=== PATIENT | female | born 1960 | race Caucasian/White ===

== ENCOUNTER 2016-12-15 17:26 | Emergency (ER) | payer OTHER ==
[~2016-12-15] VITALS: Wt 60.8 kg
[~2016-12-15 17:26] MED LIST: ATIVAN1 MG PO; FENOFIBRATE40 MG PO; [UNRECOGNIZED DRUG - OTHER] PO
[2016-12-15] MEDS ORDERED: ANAPROX DS550 MG PO (17:40)
== END 2016-12-15 18:43 | disposition home or self-care (01) ==
LOC: ED 17:26
DX: S50.01XA Contusion of right elbow, initial encounter (principal); M54.5 Low back pain; M25.511 Pain in right shoulder; F17.200 Nicotine dependence, unspecified, uncomplicated; Z88.1 Allergy status to other antibiotic agents; Z79.899 Other long term (current) drug therapy; W01.0XXA Fall on same level from slipping, tripping and stumbling without subsequent striking against object, initial encounter; Y93.89 Activity, other specified; Y92.89 Other specified places as the place of occurrence of the external cause; Y99.8 Other external cause status

== ENCOUNTER 2017-03-15 17:59 | Inpatient (IN) | payer OTHER ==
[~2017-03-15] VITALS: Ht 165.1 cm; Wt 64.4 kg
--- NOTE | ~2017-03-15 | ST ---
[place], [place] EXERCISE STRESS TEST REPORT NAME: [facility]: [id number] UNIT #: [id number] ROOM: 521 DOCTOR: MELY DONALDSON MD BIRTHDATE: [birth year] DOS: REQUESTING PHYSICIAN: Dr. Borden. REASON FOR PROCEDURE: Chest pain or pressure. PROCEDURE: The patient was exercised on a treadmill using Ovi protocol. The patient exercised for 6 minutes, reaching 90% of her maximum predicted heart rate. Maximum workload was 8 METs. Test was terminated due to achieving target heart rate. No complaint of chest pain, chest pressure, heaviness or tightness. BLOOD PRESSURE RESPONSE: Resting blood pressure 100/60 with ending blood pressure 139/72. ELECTROCARDIOGRAM INTERPRETATION: Resting cardiogram showing normal sinus rhythm. At the peak of the stress test, there was no evidence of any significant ST or T-wave changes suggestive of myocardial ischemia. No arrhythmias were noted. SUMMARY: 1. Adequate stress test with good functional capacity. 2. Negative treadmill stress test for stress induced myocardial ischemia. 3. No arrhythmias were noted except for a single PVC into recovery, which was symptomatic. 4. Normal blood pressure at rest with normal blood pressure response to exercise. 5. Myoview results will be reported separately. MELY DONALDSON MD CM:STRESS:EXERCISE STRESS TEST REPORT [id number] MELY DONALDSON MD
--- NOTE | ~2017-03-15 | CON ---
[place], [place] REPORT OF CONSULTATION NAME[id number] UN[facility] #: [id number] ROOM: 521 DOCTOR: MELY DONALDSON MD BIRTHDATE: [birth year] DOS: REQUESTING PHYSICIAN: Dr. Borden. REASON FOR CONSULTATION: Chest pain. ASSESSMENT: 1. Current presentation with left-sided chest pain. 2. Low-grade temperature at 99.1. 3. Worsening chest pain with deep inspiration. 4. Significant early family history of heart disease. 5. Hypertriglyceridemia. 6. Active tobacco abuse. 7. Elevated TSH. PLAN: 1. Cyclic ____ enzymes. 2. Keep patient n.p.o. for a stress test. 3. Enteric-coated aspirin 81 mg. 4. Check fasting lipid panel. 5. Elevated TSH per primary team. 6. No further cardiac testing at this time. 7. Program for smoking cessation. HISTORY AND PHYSICAL: The patient is a pleasant 56-year-old female unknown to our practice, was referred by Dr. Borden for further evaluation of complaint of chest pain, apparently the patient was woken up yesterday with this complaint. The pain is left-sided, dull aching, did radiate to her left arm all the way to the back. It did reach 5-6/10. It fluctuated throughout the day and finally the patient presented to the emergency room. The patient noticed that the pain will get worse with deep inspiration. No jaw pain, no back pain. Never had such complaint before yesterday. The patient is exhibiting low-grade temperature. No cough, no fever, no chills, no night sweats. Maintain good appetite. No weight loss. Never had any symptomatic palpitation or any associated dizziness, lightheadedness or near syncope. No reported snoring. The patient sleeps with 1 pillow with no PND, orthopnea or pedal edema. PAST MEDICAL HISTORY: As detailed in my assessment. SOCIAL HISTORY: The patient continued to use her e-cigarettes for the past 3 years, currently denies any alcohol or illicit drug abuse. FAMILY HISTORY: The patient's father in his 80s of a stroke, her mother at age 60 of cancer, but had myocardial infarction in her 50s. She has 2 brothers, both of them , one of them had myocardial infarction also in his 50s. Two sisters still alive with no reported heart problems. CURRENT MEDICATIONS: Lovenox, Restoril, Zofran, magnesium, [place], Tylenol, Toradol. [place], [place] REPORT OF CONSULTATION NAME: YANET MCMILLAN UNIT #: [id number] ROOM: 521 DOCTOR: MELY DONALDSON MD BIRTHDATE: [birth year] ALLERGIES: The patient is allergic to ERYTHROMYCIN which caused rash. REVIEW OF SYSTEMS: The patient denies any current headache, diplopia, or blurry vision. No fever, no chills, no night sweats, no abdominal pain, no bright red blood per rectum or tarry stools. The patient admits to joint pain, but no muscular pain. No anxiety, no depression, no polyuria, no polydipsia, no skin rash. Review of all other systems has been negative. PHYSICAL EXAMINATION: GENERAL: The patient is alert and oriented x 3, quite pleasant, sitting flat in bed, does not appear in distress. VITAL SIGNS: Blood pressure 104/64, heart rate 64, respiratory rate of 14, temperature 99.1. HEENT: Extraocular muscle intact. Pupils equal, round, reactive to light. Conjunctivae: No pallor. Throat: No petechiae. NECK: Good upstroke. Unable to appreciate any bruit, no lymphadenopathy, no thyromegaly. HEART: S1, S2 with a faint S4 gallop. No rub, no retrosternal heave. CHEST AND BACK: No deformities. LUNGS: Clear to auscultation. Good air movement. No wheezing, no rales. ABDOMEN: Obese, soft, nontender, present bowel sounds, no masses, no bruits. LOWER EXTREMITIES: There is no edema with faint distal pulses. NEUROLOGIC: Grossly nonfocal. SKIN: No significant rash. Electrocardiogram show normal sinus rhythm with no acute ST-T changes. LABORATORY DATA: White count 5.6, hemoglobin 11.6. There is elevated neutrophils. BUN 16, creatinine 0.7, total cholesterol 146, LDL 57, HDL is 79. TSH 7.750, T4 0.91. Troponin less than 0.015 times 3. MELY DONALDSON MD CM:CONSTR:REPORT OF CONSULTATION 1006 03/17/17 0408 interface
[~2017-03-15 17:59] MED LIST changes: +ANAPROX DS550 MG PO
--- NOTE | 2017-03-15 18:08 | NUR ---
PT REFUSES IV INSERTION "UNTIL IT'S ABSOLUETLY NEEDED".
[2017-03-15 18:11] VITALS: BP 128/64
[2017-03-15 18:14] LABS: BASO % 0.4 % (0.0-1.0); EOS # 0.2 10*3/uL (0.0-0.4); HEMATOCRIT 37.1 % (37.0-47.0); HEMOGLOBIN 12.2 g/dl (12.0-16.0); LYMPH # 2.7 10*3/uL (1.3-4.4); LYMPH % 33.2 % (27.0-41.0); MEAN CELL VOLUME 97.1 fl (81.0-99.0); MEAN CORPUSCULAR HGB 31.9 pg (27.0-31.0); MEAN CORPUSCULAR HGB CONC 32.9 g/dl (33.0-37.0); MEAN PLATELET VOLUME 10.6 fl (9.6-12.3); MONO # 0.5 10*3/uL (0.1-1.0); NEUT # 4.8 10*3/uL (2.3-7.9); NEUT % 58.2 % (47.0-73.0); PLATELET COUNT AUTOMATED 257 10*3/uL (130-400); RED BLOOD COUNT 3.82 10*6/uL (4.10-5.10); RED CELL DISTRI WIDTH 12.9 % (0-14.5); WHITE BLOOD COUNT 8.2 10*3/uL (4.8-10.8)
[2017-03-15 18:22] LABS: ACT PARTIAL THROMBO TIME 26.5 SECONDS (20.8-31.5); INTERNATIONAL NORM RATIO 0.9 (2.0-3.5)
[2017-03-15 18:31] LABS: ALBUMIN 3.5 gm/dl (3.1-4.5); ALKALINE PHOSPHATASE 53 U/L (45-117); BUN 18 mg/dl (7-24); CHLORIDE 105 mmol/L (98-107); CREATININE 1.06 mg/dL (0.55-1.02); POTASSIUM 3.6 mmol/L (3.5-5.1); SGOT/AST 18 IU/L (3-35); SGPT/ALT 17 U/L (12-78); SODIUM 141 mmol/L (136-145)
[2017-03-15 18:33] LABS: TROPONIN I < 0.015 ng/ml (<0.045)
[2017-03-15 20:02] VITALS: BP 128/64
[2017-03-15 20:25] VITALS: BP 122/72
--- NOTE | 2017-03-15 20:25 | NUR ---
A 56, admitted to 5E, under the services of USHA Meza DO with a diagnosis of CHEST PAIN. Chief complaint is CHEST PAIN. Patient arrived via wheel chair from ER. Monitor applied. Initial assessment completed. Vital signs taken and recorded. USHA MEZA DO notified of admission to the unit. Orders received. See assessment for past medical history, medications and allergies. Patient and/or family oriented to unit. visitation policy reviewed. Clothing/patient valuable form completed. MARY PHOENIX
[2017-03-15] MEDS ORDERED: ASPIRIN ADULT L81 M1 PO (20:55)
[2017-03-15] MEDS ORDERED: ESTRACE1 M1 PO (20:55)
[2017-03-15] MEDS ORDERED: COLACE100 MG PO (20:56)
[2017-03-15] MEDS ORDERED: MIRALAX119 GM PO (20:57)
--- NOTE | 2017-03-15 20:59 | NUR ---
MED REC UP TO DATE, PER PATIENT
[2017-03-15 21:21] LABS: CKMB 1.5 ng/ml (0.5-3.6); CPK 59 U/L (26-192); TROPONIN I < 0.015 ng/ml (<0.045)
[2017-03-16] VITALS: BP 102/59; BP 130/63
[2017-03-16 00:27] LABS: CKMB 1.3 ng/ml (0.5-3.6); CPK 48 U/L (26-192)
[2017-03-16 00:28] LABS: TROPONIN I < 0.015 ng/ml (<0.045)
--- NOTE | 2017-03-16 02:00 | NUR ---
SLEEPING. RESP EASY AND NONLABORED ON ROOM AIR. NO DISTRESS NOTED. CM INTACT. IVF INFUSING PER ORDER. CALL LIGHT IN REACH. WILL CONTINUE TO MONITOR.
--- NOTE | 2017-03-16 05:15 | NUR ---
DR CALZADA MADE AWARE OF NEW CONSULT, LAB RESULTS, AND STRESS TEST ORDERED FOR THIS AM. NO NEW ORDERS RECEIVED
[2017-03-16 06:21] LABS: BASO % 0.5 % (0.0-1.0); EOS # 0.2 10*3/uL (0.0-0.4); EOS % 3.4 % (1.0-4.0); HEMATOCRIT 35.4 % (37.0-47.0); HEMOGLOBIN 11.6 g/dl (12.0-16.0); LYMPH # 2.4 10*3/uL (1.3-4.4); LYMPH % 43.5 % (27.0-41.0); MEAN CELL VOLUME 99.4 fl (81.0-99.0); MEAN CORPUSCULAR HGB 32.6 pg (27.0-31.0); MEAN CORPUSCULAR HGB CONC 32.8 g/dl (33.0-37.0); MEAN PLATELET VOLUME 10.5 fl (9.6-12.3); MONO # 0.4 10*3/uL (0.1-1.0); MONO % 7.5 % (3.0-9.0); NEUT # 2.5 10*3/uL (2.3-7.9); NEUT % 44.9 % (47.0-73.0); PLATELET COUNT AUTOMATED 237 10*3/uL (130-400); RED BLOOD COUNT 3.56 10*6/uL (4.10-5.10); WHITE BLOOD COUNT 5.6 10*3/uL (4.8-10.8)
[2017-03-16 06:35] LABS: CHLORIDE 113 mmol/L (98-107); POTASSIUM 3.9 mmol/L (3.5-5.1); SODIUM 143 mmol/L (136-145)
[2017-03-16 06:49] LABS: ACT PARTIAL THROMBO TIME 26.9 SECONDS (20.8-31.5); INTERNATIONAL NORM RATIO 0.9 (2.0-3.5)
[2017-03-16 06:51] LABS: ALBUMIN 3.1 gm/dl (3.1-4.5); ALKALINE PHOSPHATASE 45 U/L (45-117); BUN 16 mg/dl (7-24); CHOLESTEROL 146 mg/dL (<200); CREATININE 0.79 mg/dL (0.55-1.02); FREE T4 0.91 ng/dl (0.76-1.46); HDL CHOLESTEROL 79 mg/dl (40-60); LDL CHOLESTEROL 57 mg/dL (9-159); PHOSPHOROUS 3.1 mg/dL (2.5-4.9); SGOT/AST 18 IU/L (3-35); SGPT/ALT 14 U/L (12-78); TRIGLYCERIDES 52 mg/dl (<150); VLDL CHOLESTEROL 10 mg/dL (6-40)
[2017-03-16 08:00] VITALS: BP 104/64
--- NOTE | 2017-03-16 09:00 | NUR ---
Appliance Worker in to talk to patient. Patient states lives at home with . There are few steps in the home. Physician: desirae [facility]acy: [facility] Home health services: no Patient's level of ADLs: INDEPENDENT Patient has working utilities: all working DME: none Follow-up physician's appointment after d/c: will be made by hospitalist nurse director upon discharge Does patient want to access PORTAL?: no Discharge plan discussed with patient, patient lives at home with , is independent in adls and ambulation, drives, patient will be going back home and denies any home needs. ISABEL CHACON
[2017-03-16 12:00] VITALS: BP 112/65
--- NOTE | 2017-03-16 12:30 | NUR ---
INFORMED CONSENT SIGNED FOR CARDIOLYTE STRESS TEST WITH DR. DONALDSON. RESTING EKG NSR, HR 68, BP 100/60. COMPLETED 6:00 OF A STANDARD FÁTIMA PROTOCOL COMPLETING 3:00 OF STAGE II, 2.5 MPH/12% GRADE. TEST TERMINATED AT PHYSICIANS DISCRETION. PEAK HEART RATE OF 148 ACHIEVED WHICH IS 90% PREDICTED MAXIMUM AND A PEAK BP OF 130/72. HAS AN AVERAGE EXERCISE TOLERANCE. SINGLE PVC NOTED IN RECOVERY WITH NO ST CHANGES. LAST RECOVERY HEART RATE 85, BP 118/68. WAITING NUCLEAR SCANNING IN STABLE CONDITION.
[2017-03-16 16:00] VITALS: BP 108/54
--- NOTE | 2017-03-16 19:50 | NUR ---
DR DONALDSON CALLED TO INQUIRE ABOUT PT BEING ABLE TO BE DISCHARGED, HE STATED THAT HE HAD CALLED EARLIER AND HER STRESS TEST WAS NEGATIVE AND SHE COULD BE DC'ED.
--- NOTE | 2017-03-16 19:51 | NUR ---
DR CIFUENTES CALLED TO LET HER KNOW IT WAS OK WITH CARDIOLOGY FOR PT TO BE DC'ED.
--- NOTE | 2017-03-16 20:19 | NUR ---
SPOKE TO . PATIENT HAS NO RESTRICTIONS ON RETURNING BACK TO WORK. RETURN TO WORK SLIP GIVEN.
--- NOTE | 2017-03-16 20:29 | NUR ---
Patient discharged in stable condition, referral letter provided to patient with specific instructions and appointment for ongoing treatment. Patient verbalizes understanding of discharge plan. Patient ambulated off of floor in care of . IV heplock removed and tissue technologist collected.
== END 2017-03-16 20:29 | disposition home or self-care (01) | DRG 206 ==
LOC: ED 17:59 → EDHOLD 19:09 → 5E 19:21
PROVIDERS: Emergency Medicine; Hospitalist; ADMIT Internal Medicine
PROC: 4A02XM4 Measurement of Cardiac Total Activity, External Approach (ICD-10-PCS; principal; 2017-03-16)
DX: M94.0 Chondrocostal junction syndrome [Tietze] (principal); F41.9 Anxiety disorder, unspecified; K59.00 Constipation, unspecified; E78.1 Pure hyperglyceridemia; Z87.891 Personal history of nicotine dependence; Z83.6 Family history of other diseases of the respiratory system; Z80.9 Family history of malignant neoplasm, unspecified; Z88.1 Allergy status to other antibiotic agents; Z82.49 Family history of ischemic heart disease and other diseases of the circulatory system; Z82.3 Family history of stroke; Z90.710 Acquired absence of both cervix and uterus; Z90.89 Acquired absence of other organs

== ENCOUNTER → 2017-08-19 | Outpatient (CLI) | payer OTHER ==
[~2017-08-19] MED LIST changes: +ASPIRIN ADULT L81 M1 PO; +COLACE100 MG PO; +ESTRACE1 M1 PO; +MIRALAX119 GM PO
== END | disposition home or self-care (01) ==
LOC: MAMMO 08:31
DX: Z12.31 Encounter for screening mammogram for malignant neoplasm of breast (principal)

== ENCOUNTER → 2018-11-04 | Outpatient (CLI) | payer OTHER | END | disposition home or self-care (01) | LOC: MAMMO 10:30 | DX: Z12.31 Encounter for screening mammogram for malignant neoplasm of breast (principal) ==

== ENCOUNTER → 2020-01-23 | Outpatient (CLI) | payer OTHER | END | disposition home or self-care (01) | LOC: MAMMO 08:30 | PROVIDERS: ATTEND Advanced Practice Midwife | DX: Z12.31 Encounter for screening mammogram for malignant neoplasm of breast (principal) ==

== ENCOUNTER → 2022-12-11 | Outpatient (CLI) | payer BC | END | disposition home or self-care (01) | LOC: MAMMO 12-02 16:30 | PROVIDERS: ATTEND Nurse Practitioner | DX: Z12.31 Encounter for screening mammogram for malignant neoplasm of breast (principal); N63.20 Unspecified lump in the left breast, unspecified quadrant; N64.9 Disorder of breast, unspecified ==

== ENCOUNTER → 2022-12-25 | Outpatient (CLI) | payer BC | END | disposition home or self-care (01) | LOC: MAMMO 01:07 | PROVIDERS: ATTEND Nurse Practitioner | DX: R92.1 Mammographic calcification found on diagnostic imaging of breast (principal); N60.02 Solitary cyst of left breast ==

== ENCOUNTER → 2023-01-19 | Outpatient (CLI) | payer BC | END | disposition home or self-care (01) | LOC: MRI 09:58 | PROVIDERS: ATTEND Specialist | DX: H90.3 Sensorineural hearing loss, bilateral (principal) ==

== ENCOUNTER → 2023-02-11 | Day surgery (SDC) | payer BC ==
[~2023-02-11] VITALS: Ht 165.1 cm; Wt 70.8 kg
[~2023-02-11] MED LIST changes: +DIAZEPAM5 MG PO
[2023-02-11 08:30] VITALS: BP 132/74
[2023-02-11 09:36] VITALS: BP 114/62
[2023-02-11 09:51] VITALS: BP 112/67
[2023-02-11 10:06] VITALS: BP 112/65
== END | disposition home or self-care (01) ==
LOC: SDC 02-06 14:00
PROVIDERS: ATTEND Specialist
DX: H83.01 Labyrinthitis, right ear (principal); H81.91 Unspecified disorder of vestibular function, right ear; F41.9 Anxiety disorder, unspecified; F32.A Depression, unspecified; E78.00 Pure hypercholesterolemia, unspecified; Z85.41 Personal history of malignant neoplasm of cervix uteri; Z87.891 Personal history of nicotine dependence; Z90.710 Acquired absence of both cervix and uterus

== ENCOUNTER → 2023-11-11 | Outpatient (CLI) | payer BC | END | disposition home or self-care (01) | LOC: MAMMO 09:27 | PROVIDERS: ATTEND Nurse Practitioner | DX: N60.02 Solitary cyst of left breast (principal); R92.8 Other abnormal and inconclusive findings on diagnostic imaging of breast; R92.332 Mammographic heterogeneous density, left breast ==

== ENCOUNTER 2023-11-16 13:34 | Emergency (ER) | payer BC ==
[~2023-11-16] VITALS: Ht 165.1 cm; Wt 68.0 kg
[2023-11-16] MEDS ORDERED: SODIUM CHLORIDE 0.9% 1,000 ML IV ONE (13:55)
[2023-11-16 14:27] LABS: HEMATOCRIT 38.8 % (37.0-47.0); MEAN CELL VOLUME 109.6 fl (81.0-99.0); MEAN CORPUSCULAR HGB 35.3 pg (27.0-31.0); MEAN CORPUSCULAR HGB CONC 32.2 g/dl (33.0-37.0); MEAN PLATELET VOLUME 10.6 fl (9.6-12.3); PLATELET COUNT AUTOMATED 290 10*3/uL (130-400); RED BLOOD COUNT 3.54 10*6/uL (4.10-5.10); WHITE BLOOD COUNT 10.1 10*3/uL (4.8-10.8)
[2023-11-16 14:29] LABS: MANUAL DIFF REFLEX YES
[2023-11-16 14:50] LABS: ALKALINE PHOSPHATASE 59 U/L (46-116); BUN 11 mg/dl (9-23); CHLORIDE 105 mmol/L (98-107); LIPASE 31 U/L (12-53); SGPT/ALT 14 U/L (5-49); TOTAL PROTEIN 6.9 gm/dL (6.0-8.0)
[2023-11-16 15:10] LABS: BASOPHILS 1 % (0-1); PLATELET SUFFICIENCY NORMAL (NORMAL); TOTAL CELLS COUNTED 100 #CELLS
== END 2023-11-16 16:34 | disposition home or self-care (01) ==
LOC: ED 13:34
PROVIDERS: Internal Medicine
DX: R55 Syncope and collapse (principal); F41.9 Anxiety disorder, unspecified; E78.00 Pure hypercholesterolemia, unspecified; Z88.8 Allergy status to other drugs, medicaments and biological substances; Z88.1 Allergy status to other antibiotic agents; Z90.49 Acquired absence of other specified parts of digestive tract; Z98.51 Tubal ligation status; Z90.710 Acquired absence of both cervix and uterus; Z98.890 Other specified postprocedural states

== ENCOUNTER → 2024-01-28 | Outpatient (CLI) | payer BC | END | disposition home or self-care (01) | LOC: MAMMO 11:00 | PROVIDERS: ATTEND Nurse Practitioner | DX: Z12.31 Encounter for screening mammogram for malignant neoplasm of breast (principal); R92.323 Mammographic fibroglandular density, bilateral breasts; R92.333 Mammographic heterogeneous density, bilateral breasts ==